=== PATIENT | female | born 1970 | race American Indian/Alaskan Native ===

== ENCOUNTER 2020-10-17 14:32 | Outpatient (CLI) | payer BC ==
--- NOTE | 2020-10-17 17:16 | Ultrasound Report ---
LEFT DIGITAL DIAGNOSTIC MAMMOGRAM WITH CAD CONVENTIONAL, 10/17/2020 LEFT LIMITED BREAST ULTRASOUND CLINICAL INFORMATION / INDICATION: Patient presents for evaluation of an area of palpable concern in the left breast. UNSPECIFIED LUMP IN LEFT BREAST, LOWER OUTER QUAD N63.23 TECHNIQUE: Digital left mammographic imaging was performed. Spot compression views were obtained. Medrano ited ultrasound was performed. This examination was interpreted with the benefit of Computer-Aided De tection (CAD) analysis. COMPARISON: Prior mammogram 12/28/2019 and 05/16/2013 FINDINGS: Breast Density: There are scattered areas of fibroglandular density. MAMMOGRAPHIC FINDINGS: There is a 10 mm nodular density corresponding with the site of palpable jaqueline rn in the far posterior upper outer quadrant of the left breast. Otherwise, no dominant mass, suspici ous calcifications, or architectural distortion in the left breast. ULTRASOUND FINDINGS: Targeted ultrasound evaluation was performed of the area of interest. Targeted ultrasound of the area of palpable concern in the left breast 3:00 position located 13 cm from the n ipple reveals an oval circumscribed hypoechoic lesion just deep to the skin surface, measuring up to 1.1 x 0.5 x 1.1 cm. The lesion is parallel. There is increased through transmission. No internal vasc ularity is demonstrated. Targeted ultrasound of the left axilla reveals a mildly enlarged left axilla ry lymph node with cortical thickness measuring up to 5 mm. IMPRESSION: 1. A superficial hypoechoic nodule corresponds with the site of palpable concern in the left breast a nd most likely reflects a benign sebaceous cyst, though clinical correlation is recommended. 2. There is a mildly enlarged left axillary lymph node with cortical thickness measuring up to 5 mm. Patient reportedly received the second dose of the Covid vaccination in June 2020, though the side is unspecified. Correlate with site of administration of the vaccine, and recommend short interval follo w-up left axillary ultrasound in 3 months to ensure stability or resolution. Follow up recommendation: Short term follow up in 3 months. BI-RADS Category 3: Probably Benign. Followup in 3 months. A "normal" or negative report should not discourage follow up or biopsy of a clinically significant f inding. A written summary of these findings will be mailed to the patient. The patient will be entered into a mammography reporting system which will generate a reminder letter for the patient's next appointmen t at the appropriate interval. According to the [employer], yearly mammograms are recommended starting at age 40 and continuing as long as a woman is in good health. Breast MRI is recommended for women with an emily roximately 20-25% or greater lifetime risk of breast cancer, including women with a strong family his tory of breast or ovarian cancer and women who have been treated for Hodgkin's disease. Signer Name: Irene Garcia MD Signed: 10/17/2020 5:12 PM Workstation Name: [id number]
== END 2020-10-17 14:33 | disposition home or self-care (01) ==
LOC: SPVWC 14:32
PROVIDERS: ATTEND Surgery
DX: N63.23 Unspecified lump in the left breast, lower outer quadrant (principal); R59.0 Localized enlarged lymph nodes